=== PATIENT | male | born 1965 | race Hispanic/Latino ===

== ENCOUNTER 2017-05-08 09:36 | Day surgery (SDC) | payer MEDICARE, OTHER ==
[2017-05-05 10:30] VITALS: BMI 36.8
[2017-05-08] MEDS ORDERED: Bupivacaine HCl 0.5% PF (10 ml) Inj ONE (10:47)
[2017-05-08] MEDS ORDERED: Lidocaine 1% Inj (20ml) ONE (10:48)
[2017-05-08] MEDS ORDERED: Clindamycin 600mg/50ml NS 600 MG/50 ML BAG IVPB ONE (11:11)
[2017-05-08] MEDS ORDERED: Lactated Ringer's 1,000 ML IV ONE (11:15)
[2017-05-08] MEDS ORDERED: Midazolam 2 MG/2 ML VIAL ONE ×7 (11:23→11:40)
[2017-05-08] MEDS ORDERED: HYDROmorphone 0.5 mg/0.5 ml ISec IVP PRN (12:04)
--- NOTE | 2017-05-08 12:10 | PCM.SURG1 ---
Surgeon's Initial Post Op Note - Surgeon's Notes Surgeon: Dr. Curtis Deluna, DPM It Architecture Analyst: Pierce William, PGY1 Type of Anesthesia: IV Sedation, Local Anesthesia Administered By: Dr. Kinney Pre-Operative Diagnosis: Verruca Vulgaris of plantar left foot Operative Findings: See dictation report. M- 3-0 nylon. I- Preop: 20 cc 1:1 1 % lidocaine plain, 0.5% marcaine plain Post-Operative Diagnosis: Same Operation Performed: Excision of wart, plantar left foot Specimen/Specimens Removed: Skin lesion of left foot Estimated Blood Loss: EBL {In ML}: 0 Blood Products Given: N/A Drains Used: No Drains Post-Op Condition: Good Date of Surgery/Procedure: 05/08/17 Time of Surgery/Procedure: 12:10
[2017-05-08 13:32] VITALS: RESP 16
[2017-05-08 14:08] VITALS: BP 123/69; PULSE 70; TEMP 97.2; O2SAT 95
--- NOTE | 2017-05-09 08:41 | OP ---
PROCEDURE DATE: 05/08/2017. SURGEON: Curtis Deluna DPM. SILO MAN: Pierce William, PGY-1 ANESTHESIOLOGIST: Dr. Kinney. ANESTHESIA: IV sedation with local. PREOPERATIVE DIAGNOSIS: Verruca vulgaris of plantar left foot. POSTOPERATIVE DIAGNOSIS: Verruca vulgaris of plantar left foot. NAME OF PROCEDURE: Excision of wart, plantar left foot. INDICATIONS: The patient is a 51-year-old male with the above diagnosis. The patient has exhausted all conservative treatment at this time and now requires surgical intervention. The patient signed the consent after careful explanation of risks, benefits, complications and alternatives for surgical procedure. No guarantees were given nor implied. NPO status was confirmed prior to taking the patient to the OR. PREPARATION: The patient was brought into the operating room and placed on the operating room table on a supine position. Timeout was performed for identification of the correct patient and procedure. After induction of IV sedation, the patient received a total of 20 mL of 1:1 mixture of 0.5% Marcaine plain and 1% Lidocaine plain in a local block fashion to the plantar aspect of the left foot. The left lower extremity was then prepped draped in a normal sterile manner and procedure began. An ankle tourniquet was utilized during the entirety of the procedure and was inflated to a pressure of 250 mmHg. PROCEDURE: Attention was then drawn to the plantar aspect of the left foot, where it was noted that a plantar wart was present. Using a fresh #15 blade, an elliptical incision was made around the plantar wart, down to the level of the subcutaneous tissue and the entirety of the wart was excised from the foot and sent to pathology for examination. The surgical site was then slightly debulked by removing some of the subcutaneous tissue that was found within the site itself. Following this, the surgical site was closed using 3-0 nylon sutures in a simple knot fashion. The surgical site was then dressed with Xeroform, dry sterile dressing and Coban and the procedure was concluded. POSTOPERATIVE CONDITION: The patient tolerated the anesthesia and procedure well and was escorted to the recovery room with vital signs stable and neurovascular status intact to the left lower extremity. Patient is to remain weightbearing as tolerated to the left foot in a surgical shoe and is to keep the dressings clean, dry and intact. The patient will follow up with Dr. Deluna at his private office in one week's time to ensure that healing is occurring in an appropriate and adequate manner. Pierce William DPM Curtis Deluna DPM MTDHema
== END 2017-05-08 14:00 | disposition home or self-care (01) ==
LOC: C.SDS 09:36
PROVIDERS: ATTEND Podiatrist
DX: B07.0 Plantar wart (principal); E11.9 Type 2 diabetes mellitus without complications; I10 Essential (primary) hypertension; Z79.84 Long term (current) use of oral hypoglycemic drugs; Z79.899 Other long term (current) drug therapy
CPT/HCPCS: 11420; 82948; 88305; 97116; 97161; G8978; G8979; G8980; J2250; J3010; J7120